=== PATIENT | male | born 1990 | race Native Hawaiian/Other Pacific Islander ===

== ENCOUNTER 2020-08-29 17:48 | Emergency (ER) | payer OTHER ==
[2020-08-29 17:53] VITALS: BP 128/66
--- NOTE | 2020-08-29 18:32 | ED Physician Documentation ---
History of Present Illness - Stated complaint Stated Complaint: FFC - Chief complaint Chief Complaint: General - History obtained from History obtained from: Patient, Police - History of Present Illness Timing: Today - Additonal information Additional information: 29-year-old male brought into the emergency department by [facility] patrol requesting fit for confinement for intoxicated patient. The patient apparently has given a breath sample indicating a blood alcohol level of 262. The patient indicates that he drinks alcohol regularly and has not gone 3 days without alcohol in the past month. He does not recall having issues with alcohol withdrawal previously. Indicates a prior history of asthma and he has not had to use his inhaler in more than 1 year. He is not currently symptomatic. He has no specific complaints at this time. Review of Systems Constitutional: denies: Fever, Chills Eyes: denies: Decreased vision Ears: denies: Ear pain Nose: denies: Congestion Throat: denies: Sore throat Cardiac: denies: Chest pain / pressure, Palpitations Respiratory: denies: Dyspnea, Cough GI: denies: Abdominal Pain, Nausea, Vomiting, Constipation, Diarrhea : denies: Dysuria, Frequency PD PAST MEDICAL HISTORY - Past Medical History Past Medical History: No - Past Surgical History Past Surgical History: No - Allergies Allergies/Adverse Reactions: Allergies Allergy/AdvReac Type Severity Reaction Status Date / Time No Known Drug Allergies Allergy Verified 08/29/20 17:53 - Social History Does the pt smoke?: No Smoking Status: Never smoker Does the pt drink ETOH?: Yes Does the pt have substance abuse?: No - Immunizations Immunizations are current?: No - POLST Patient has POLST: No PD ED PE NORMAL - Vitals Vital signs reviewed: Yes (Normal) - General General: Alert and oriented X 3, No acute distress, Well developed/nourished - HEENT HEENT: Atraumatic, PERRL, EOMI, Other (Injected sclera without icterus) - Neck Neck: Supple, no meningeal sign, No bony TTP - Cardiac Cardiac: RRR, No murmur - Respiratory Respiratory: No respiratory distress, Clear bilaterally - Abdomen Abdomen: Soft, Non tender - Back Back: No CVA TTP, No spinal TTP - Derm Derm: Normal color, Warm and dry, No rash - Extremities Extremities: No deformity, No edema - Neuro Neuro: Alert and oriented X 3, industrial court magistrate 2-12 intact, No motor deficit, No sensory deficit, Normal speech Eye Opening: Spontaneous Motor: Obeys Commands Verbal: Oriented GCS Score: 15 - Psych Psych: Normal mood, Normal affect Results - Vitals Vitals: Vital Signs - 24 hr 08/29/20 17:50 Temperature 36.2 C L Heart Rate 88 Respiratory 16 Rate Blood Pressure 128/66 O2 Saturation 98 Oxygen O2 Source Room air PD MEDICAL DECISION MAKING - ED course Complexity details: considered differential, d/w patient ED course: 29-year-old male not previously seen through our emergency department is brought to the emergency department for fit for confinement. He has a history of alcohol use on a regular basis and admits that he has not had 3 days of sobriety in the past month. I was able to observe the patient walking from the bathroom back into his room with a steady gait and he had normal phonation and absence of dysarthria. He has a history of asthma and has used an inhaler previously but has not required one in the past year. He is currently asymptomatic and lung exam is unremarkable. I believe the greatest risk to this patient for confinement is alcohol withdrawal which would occur in 24 to 48 hours and may require medication. I have made a recommendation for a Librium taper should he become symptomatic while incarcerated. Departure - Departure Disposition: 01 Home, Self Care Clinical Impression: Alcohol abuse with uncomplicated intoxication Alcohol intoxication Qualifiers: Complication of substance-induced condition: uncomplicated Qualified Code(s): F10.920 - Alcohol use, unspecified with intoxication, uncomplicated Instructions: ED Alcohol Intoxication Follow-Up: [facility] [Provider Group]
== END 2020-08-29 18:43 | disposition home or self-care (01) ==
LOC: ED 17:48
DX: F10.129 Alcohol abuse with intoxication, unspecified (principal)
CPT/HCPCS: 99281; 99283